=== PATIENT | male | born 1940 | race Caucasian/White ===

== ENCOUNTER → 2023-06-30 06:31 | Outpatient (REF) | payer MEDICARE, BC, SELFPAY | LOC: RSP 06:31 | PROVIDERS: ATTENDING PHYSICIAN Nurse Practitioner; FAMILY PHYSICIAN Family Medicine | DX: R06.09 Other forms of dyspnea (principal) | CPT/HCPCS: 94727; 94729; 88738; 94010 ==

== ENCOUNTER → 2023-08-26 09:37 | Outpatient (REF) | payer MEDICARE, BC, SELFPAY ==
[2023-08-26 11:00] LABS: Blood Urea Nitrogen 20 mg/dl (9-20)
== END ==
LOC: REG 09:37
PROVIDERS: ATTENDING PHYSICIAN Surgery; FAMILY PHYSICIAN Family Medicine
DX: C43.61 Malignant melanoma of right upper limb, including shoulder (principal)
CPT/HCPCS: 36415; 82565; 84520

== ENCOUNTER → 2023-09-07 07:40 | Outpatient (REF) | payer MEDICARE, BC, SELFPAY | LOC: HWRAD 07:40 | PROVIDERS: ATTENDING PHYSICIAN Surgery; FAMILY PHYSICIAN Family Medicine | DX: C43.61 Malignant melanoma of right upper limb, including shoulder (principal) | CPT/HCPCS: 71260; 74177; Q9967 ==

== ENCOUNTER → 2023-10-10 10:53 | Outpatient (REF) | payer MEDICARE, BC, SELFPAY ==
[2023-10-10 11:34] LABS: % Basophils 0.7 % (0-2); % Immature Granulocytes 0.3 % (0-0.5); % Lymphocytes 58.4 % (20.5-51.1); % Monocytes 4.8 % (1.7-9.3); % Neutrophils 33.8 % (42.2-75.2); Absolute Basophils 0.1 10^3/uL (0-0.2); Absolute Eosinophils 0.2 10^3/uL (0-0.7); Absolute Lymphocytes 6.2 10^3/uL (1.2-3.4); Absolute Monocytes 0.5 10^3/uL (0.1-0.6); Absolute Neutrophils 3.6 10^3/uL (1.4-6.5); Hematocrit 39.7 % (39.0-52.0); Hemoglobin 13.3 g/dL (13.0-18.0); Mean Corp Hgb Conc. 33.5 g/dL (33.0-37.0); Mean Corpuscular Hgb 30.4 pg (27.0-31.0); Mean Corpuscular Volume 90.8 fL (80.0-94.0); Mean Platelet Volume 9.1 fL (7.4-10.4); Nucleated Red Blood Cells % 0 % (-); Platelet Count 194 10^3/uL (130-400); Red Blood Cell Count 4.37 10^6/uL (4.70-6.10); White Blood Cell Count 10.7 10^3/uL (4.8-10.8)
[2023-10-10 13:14] LABS: IgG 784 mg/dl (700-1600)
[2023-10-10 13:17] LABS: LDH 256 U/L (120-246)
== END ==
LOC: REG 10:53
PROVIDERS: ATTENDING PHYSICIAN Internal Medicine Hematology & Oncology; FAMILY PHYSICIAN Family Medicine
DX: D72.820 Lymphocytosis (symptomatic) (principal); C91.10 Chronic lymphocytic leukemia of B-cell type not having achieved remission
CPT/HCPCS: 36415; 82784; 83615; 85025

== ENCOUNTER 2023-11-26 02:31 | Inpatient (IN) | payer MEDICARE, BC, SELFPAY ==
[2023-11-25 18:49] VITALS: BP 129/67
[2023-11-25 19:19] LABS: % Basophils 0.4 % (0-2); % Eosinophils 0.5 % (0-6); % Immature Granulocytes 0.6 % (0-0.5); % Lymphocytes 35.9 % (20.5-51.1); % Monocytes 9.1 % (1.7-9.3); % Neutrophils 53.5 % (42.2-75.2); Absolute Basophils 0.1 10^3/uL (0-0.2); Absolute Eosinophils 0.1 10^3/uL (0-0.7); Absolute Immature Granulocytes 0.1 10^3/uL (0-0.05); Absolute Lymphocytes 5.3 10^3/uL (1.2-3.4); Absolute Monocytes 1.3 10^3/uL (0.1-0.6); Absolute Neutrophils 7.9 10^3/uL (1.4-6.5); Hematocrit 34.1 % (39.0-52.0); Hemoglobin 11.3 g/dL (13.0-18.0); Mean Corp Hgb Conc. 33.1 g/dL (33.0-37.0); Mean Corpuscular Hgb 29.4 pg (27.0-31.0); Mean Corpuscular Volume 88.8 fL (80.0-94.0); Mean Platelet Volume 8.7 fL (7.4-10.4); Nucleated Red Blood Cells % 0 % (-); Platelet Count 283 10^3/uL (130-400); Red Blood Cell Count 3.84 10^6/uL (4.70-6.10); Red Cell Dist. Width 12.6 % (11.5-14.5); White Blood Cell Count 14.8 10^3/uL (4.8-10.8)
[2023-11-25 19:33] LABS: INR 1.28; PT 15.8 Sec (11.4-14.6)
[2023-11-25 19:37] LABS: ALT (SGPT) 84 U/L (0-50); AST (SGOT) 107 U/L (17-59); Albumin 3.9 g/dl (3.5-5.0); Alkaline Phosphatase 304 U/L (38-126); Blood Urea Nitrogen 37 mg/dl (9-20); Calcium 9.4 mg/dl (8.4-10.2); Carbon Dioxide 27 mmol/L (22-30); Chloride 98 mmol/L (98-107); Glucose 170 mg/dl (70-99); Potassium 5.5 mmol/L (3.5-5.1); Sodium 135 mmol/L (135-145); Total Protein 6.4 g/dl (6.3-8.2); eGFR 50.18
[2023-11-25 19:39] LABS: Troponin I < 0.012 ng/ml
[2023-11-25 20:41] VITALS: BP 127/58
[2023-11-25 21:00] VITALS: BP 110/58
[2023-11-25 22:00] VITALS: BP 124/55
[2023-11-25 22:38] LABS: Urine Albumin Trace (Neg - Trace); Urine Bilirubin 1+ (Negative); Urine Character Clear (Clear); Urine Color Yellow; Urine Glucose Negative (Negative); Urine Ketone Negative (Negative); Urine Leukocyte Negative (Negative); Urine Nitrite Negative (Negative); Urine Occult Blood Trace (Negative); Urine Urobilinogen 1+ (Neg - 1+)
[2023-11-25 22:39] LABS: Magnesium 2.1 mg/dl (1.6-2.3)
--- NOTE | 2023-11-25 22:44 | ED.GENMED ---
History of Present Illness
General
Chief Complaint: Chest Pain
Source: patient and family
Exam Limitations: none
Time Seen by Provider: 11/25/23 20:17
Nursing documentation reviewed up to this point in time: agreed with
History of Present Illness
History of Present Illness:
Patient presents to ED secondary to persistently, intermittent exertional shortness of breath and chest discomfort with fatigue over the past 2 weeks. Today, patient had multiple episodes, where he was found to be diaphoretic, clammy, and pale
appearing. These are symptoms similar to what he had experienced in the past, when he received multiple cardiac stents. Of note, patient states that his symptoms all started after he painted a shed outside. Since then, patient has felt fatigued
and sleepy, along with decreased appetite. Denies nausea or vomiting. Denies fever or chills. Denies back pain. Denies leg pain or swelling.
Past History
Past History
ED Past Medical History: Arrthythmia (Atrial fibrillation ), GERD, HTN, Hypercholesterolemia, Other (Arthritis ) and Other (Kidney stones )
ED Past Surgical History: Orthopedic (Knee replacement surgery rotator cuff surgery ) and Tonsilectomy
Social History
Tobacco: Non-smoker
Drug: None
Personal:
Living: with family
Employment: Retired
Family History
Family History: Negative Diabetes
Review of Systems
Review of Systems
Allergies reviewed?: Yes
All Other Systems: ROS reviewed and negative except as documented in HPI and ROS
Constitutional: Reports no symptoms
EENT: Reports no symptoms
Respiratory: Reports trouble breathing
Cardiac: Reports chest pain
ABD/GI: Reports no symptoms
: Reports no symptoms
Musculoskeletal: Reports no symptoms
Skin: Reports no symptoms
Neurological: Reports no symptoms
Phy Exam
Physical Exam
Physical Exam:
Physical Exam
General: no apparent distress, not acutely ill. afebrile
Head: nc/at. eomi
Neck: supple. no meningeal signs.
Heart: s1/s2 regular rate and rhythm, systolic ejection murmur. equal radial pulses.
Lungs: no acute respiratory distress. clear bilaterally
Abdomen: normal bowel sounds. not tender.
Neuro: alert and oriented. no focal neurological deficits
Skin: no rash
Psychiatric: well kept. interactive and cooperative
Extremities: no edema. no calf tenderness.
Scores
Heart Score for Chest Pain Patients
STEMI patient?: No
History: Moderately Suspicious
ECG: Normal
Age: >/= 65 years
Risk Factors: >/= 3 Risk Factors or History of CAD
Troponin: </= Normal Limit
Heart Score for Chest Pain Patients: 5
Heart Score Risk: 20.3% MACE over next 6 weeks
Course
Orders/Labs/Results
Orders:
Orders
11/25/23 18:54
Electrocardiogram (*1) Urgent
Reason for Study: Chest Pain
EKG- Treatment ONCE
11/25/23 19:08
Prothrombin Time Urgent
11/25/23 19:09
Complete Blood Count/With Diff Urgent
Comprehensive Metabolic Panel Urgent
Creatine Phosphokinase Urgent
Comment: ADD ON
Magnesium Urgent
Comment: ADD ON
NT-proBNP Urgent
Comment: ADD ON
Troponin I Urgent
11/25/23 22:05
Add On- LAB Urgent
Tests Added?: magnesium, Pro-BNP
11/25/23 22:06
CR Chest - 2 Views Urgent
Comment:
Reason For Exam: sob
11/25/23 22:31
COVID-19 Antigen Urgent
Source: Nasal Swab
Urinalysis Reflex To Culture Urgent
Date Specimen was Collected: 11/25/23
Time Specimen was Collected: 22:10
Urine Microscopic Reflex Cult Urgent
Urine Culture Urgent
TAMMY Source: U
Specimen Description:
Date Specimen was Collected: 11/25/23
Time Specimen was Collected: 22:10
11/25/23 22:33
0.9% Sodium Chloride 500 ml [Nss] 500 ml IV BOLUS
11/25/23 22:45
Add On- LAB Urgent
Tests Added?: pro-bnp
11/26/23 01:02
Troponin I Urgent
11/26/23 01:15
Admit/Transfer Patient As Directed
Co-Sign Provider:
Level of Care: Inpatient admission
Assign to:: Telemetry
Physician / Group: Milind
Diagnosis: KEYUR
Reason for Telemetry: Chest Pain syndromes
Date to Stop Telemetry: 11/28/23
Time to Stop Telemetry: 11:00
Reason for Hospitalization: KEYUR, Chest Pain
Expected length of stay greater than two midnights?: Yes
ELOS- Estimated Length of Stay in days: 2
I certify the patient meets the requirements for IP care: Yes
11/26/23 01:16
Code Status As Directed
Resuscitation Status: Full Code
11/26/23 01:23
Add On- LAB Urgent
Tests Added?: CPK
11/26/23 03:30
0.9% Sodium Chloride 1000 ml [Nss] 1,000 ml IV 100 mls/hr
Acetaminophen [Tylenol] 650 mg PO Q4HPRN PRN
11/26/23 03:30
Echo 2D MMode Doppler [Echo 2D MMode Color/Doppler] Routine
Reason for Study: Chest pain, SOB
CARDIOLOGY CONSULT Routine
Consulting Provider: Sorin Mckinley
Was physician already notified: No
Reason for consult: Chest Pain / CAD
Consult Notification Routine
Specialty to Notify: Cardiology
Date consulting provider notified: 11/26/23
Time consulting provider notified: 07:54
Notified:: Provider
Comment: VIA TIGER TEXT DR. CHIP CROSS
Activity As Directed
Activity Level: Ambulate
With Assistance
Bladder Scan As Directed
Follow Bladder Retention/Intermittent Cath Algorithm?: Yes
PRN if no void in __ hours: 6
Frequency: Per Retention Algorithm
If Bladder Scan Result >: 400
then:: Straight cath
EKG with chest pain [ECG as needed] As Directed
ECG as needed for:: Chest Pain
I/O [Intake/ Output] As Directed
Frequency: Per unit guidelines
Orthostatic Vital Signs As Directed
Orthostatic VS Frequency: BID
Pneumatic Compression Sleeves As Directed
Type: Knee high
Straight Cath As Directed
Frequency: Per Retention Algorithm
Additional Instructions: straight cath as needed per acute urinary retention algorithm for 24 hrs
Additional Instructions: for bladder scan greater than 400 mL
Vital Signs As Directed
Frequency: Per unit guidelines
Weight As Directed
Frequency: Daily
Oxygen Therapy [O2 Therapy] [RESP] Routine
Titrate/Wean O2 to maintain O2 sat greater than (%): 94
Ot Eval And Treat Routine
PT Consult [Pt Eval And Treat] Routine
Activity Level: Ambulate
With Assistance
DX Deep Vein Thrombosis Video Routine
11/26/23 06:00
EKG [Electrocardiogram (*1)] IN AM
Reason for Study: Chest Pain
Regular
At Your Request: Full Participation
Levothyroxine [Synthroid] 100 mcg PO DAILY@0600
US Abdomen Complete/Upper IN AM
Comment:
Reason For Exam: Abnormal LFTs
11/26/23 07:46
Complete Blood Count/No Diff IN AM
TSH Reflex To Free T4 Routine
Troponin I IN AM
11/26/23 08:00
Allopurinol [Zyloprim] 100 mg PO DAILY
Atenolol [Tenormin] 50 mg PO DAILY
Clopidogrel Bisulfate [Plavix] 75 mg PO DAILY
ISOSORBIDE MONOnitrate ER [Imdur (Extended Release)] 30 mg PO DAILY
Pantoprazole [Protonix] 40 mg PO DAILY
11/26/23 18:00
Aspirin Low Dose EC [Aspir Low (Enteric Coated)] 81 mg PO QPM
Enoxaparin Sodium [Lovenox] 40 mg SC QPM
Ezetimibe [Zetia] 10 mg PO QPM
Rosuvastatin Calcium [Crestor] 5 mg PO QPM
coQ10 (ubiquinol) 200 mg PO QPM
11/28/23 11:00
DC Protocol for Telemetry ONCE
Abnormal Lab Results
11/25/23 11/25/23 11/25/23
19:08 19:09 22:31
WBC 14.8 H 10^3/uL
(4.8-10.8)
RBC 3.84 L 10^6/uL
(4.70-6.10)
Hgb 11.3 L g/dL
(13.0-18.0)
Hct 34.1 L %
(39.0-52.0)
Abs Immat Gran (auto) 0.1 H 10^3/uL
(0-0.05)
Absolute Neuts (auto) 7.9 H 10^3/uL
(1.4-6.5)
Absolute Lymphs (auto) 5.3 H 10^3/uL
(1.2-3.4)
Absolute Monos (auto) 1.3 H 10^3/uL
(0.1-0.6)
Immature Gran % 0.6 H %
(0-0.5)
PT 15.8 H Sec
(11.4-14.6)
Potassium 5.5 H mmol/L
(3.5-5.1)
BUN 37 H mg/dl
(9-20)
Creatinine 1.4 H mg/dL
(0.7-1.3)
Glucose 170 H mg/dl
(70-99)
AST 107 H U/L
(17-59)
ALT 84 H U/L
(0-50)
Alkaline Phosphatase 304 H U/L
(38-126)
Ur Occult Blood Reflex Trace A
(Negative)
Urine Bilirubin 1+ A
(Negative)
Urine Bacteria (Reflex) Many A
(Negative)
11/25/23 19:09
11/25/23 19:09
Vital Signs
Initial and Last Documented VS:
Initial Vital Signs
Temp Pulse Resp BP Pulse Ox
98.2 F 78 18 129/67 96
11/25/23 18:49 11/25/23 18:49 11/25/23 18:49 11/25/23 18:49 11/25/23 18:49
Last Documented Vital Signs
Temp Pulse Resp BP Pulse Ox
99 F 63 16 112/60 94
11/26/23 15:00 11/26/23 15:00 11/26/23 15:00 11/26/23 15:00 11/26/23 15:00
MDM/Problems Addressed
MDM/Problems Addressed:
History and exam consistent with likely mild degree of dehydration, from overexertion when he was painting couple weeks ago. However, patient does have significant CAD with intermittent symptoms, especially today, concerning for potential recurrent
obstructive disease. As such, patient will be admitted for further eval and treatment, including IV hydration and potential cardiology evaluation.
*Critical Care Note
Total Time (30-74mins, 75-104mins- exclusive of procedures): Not Applicable
ED Attending Note
-
Portions of this chart may have been created with voice recognition software.� Occasional wrong word or��sound alike� substitutions may have occurred due to the inherent limitations of voice recognition software.
Discharge Plan
Departure
Patient Disposition: Admit
Date of Disposition: 11/25/23
Time of Disposition: 22:50
Admit to: Telemetry
Presentation/result/management discussed w/ accepting MD/DO: Hospitalist
Discharge Problem:
Acute renal failure (ARF), Chest pain
Interventions
Interventions:
*Risk Screen - Suicide Last Done: 11/26/23 02:57
*General Assessment Last Done: 11/25/23 18:49
*Neglect/Abuse Screening Last Done: 11/25/23 18:49
ED- Fall Risk Assessment Last Done: 11/26/23 02:45
*ED COVID-19 Vaccine History Last Done: 11/26/23 02:57
*Nursing Disposition Last Done: 11/26/23 02:45
ED- Cardiac Assessment Last Done: 11/25/23 20:47
Discharge Date and Time
Discharge Date/Time: 11/26/23 02:46
[2023-11-25 22:47] LABS: Urine Red Blood Cell 0-2 /HPF (0-2); Urine White Cell 0-2 /HPF (0-5)
[2023-11-25 22:48] LABS: Urine Bacteria Many (Negative)
[2023-11-25 22:53] LABS: COVID-19 Antigen Negative (Negative)
[2023-11-25] MEDS: NSS 500 IV (22:58)
[2023-11-25 23:27] LABS: NT-proBNP 380 pg/ml
[2023-11-26] VITALS (7 sets, daily range): BP systolic 112–144; BP diastolic 55–73; PULSE 75–95; O2SAT 95; BMI 30.5
--- NOTE | 2023-11-26 01:19 | HPS.HSE ---
Family Physician
-
Family Physician: Nita Song
Chief Complaint
-
Fatigue, chest pain, diaphoresis
History of Present Illness
Patient is an 83y M with PMH significant for ASCVD, aortic stenosis and hypertension who presents to ED complaining of 2 weeks of SOB, generalized weakness / fatigue and intermittent chest pain and diaphoresis. History obtained from patient and
his family at the bedside. Patient states that about 3 weeks ago he 'overdid it' by painting his large outdoor shed (with a 2.5in brush). Since that time, he has felt more short of breath with activity, generally weak and fatigued. He has
episodes of lightheadedness and 'cold sweats'. He has had brief episodes of chest discomfort. He had outpatient labs done for a routine upcoming visit with his PCP - and he was called and advised to present to the ED given his ongoing symptoms and
his lab abnormalities.
Patient denies any chest pain at this time.
He denies any significant changes in his weight, LE swelling, etc.
He does report decreased frequency of urination and very dark and malodorous urine.
Medical History
Past Medical History
Past Medical History: Reports Other
Additional Past Medical History:
ASCVD
A-Fib (s/p Ablation)
Aortic Stenosis
CLL
Hypertension
Hypothyroidism
Gout
GERD
Past Surgical History: Reports Other
Additional Past Surgical History:
PTCA with Stent (x 3)
TAVR
PVI Ablation (x 2)
Bilateral TKA
Bilateral Rotator Cuff Repairs
R Ankle Arthroplasty
RUE Melanoma Excision and R Axillary Lymph Node Dissection
Social History
Tobacco: Former Smoker (Quit smoking in 1970s)
Alcohol: Occasional
Drug: None
Personal:
Living: With Family
Family History
Family History: Not pertinent
Allergies / Home Medications
Allergies reflects when Allergies were last updated in [employer].
Home Medications with original date entered in [employer]
Allergy/Medication List:
Allergies
Allergy/AdvReac Type Severity Reaction Status Date / Time
No Known Allergies Allergy Verified 05/02/23 08:03
Home Medications
levothyroxine 100 mcg tablet (Synthroid) 100 mcg PO DAILY 11/23/09
atenolol 50 mg tablet 50 mg PO DAILY 07/14/12
allopurinol 100 mg tablet 100 mg PO DAILY 04/30/21
losartan 50 mg tablet 50 mg PO DAILY 04/30/21
clopidogrel 75 mg tablet 75 mg PO DAILY #90 tabs 12/07/21
isosorbide mononitrate 30 mg tablet,extended release 24 hr 30 mg PO DAILY 05/02/23
rosuvastatin 5 mg tablet 5 mg PO QPM 05/02/23
Metamucil 1 tbsp PO HS 11/25/23
acetaminophen 650 mg tablet,extended release 650 mg PO DAILY 11/25/23
aspirin 81 mg tablet,delayed release 81 mg PO QPM 11/25/23
coQ10 (ubiquinol) 200 mg capsule 200 mg PO QPM 11/25/23
ezetimibe 10 mg tablet (Zetia) 10 mg PO QPM 11/25/23
lansoprazole 30 mg capsule,delayed release 30 mg PO DAILY 11/25/23
light mineral oil-mineral oil (PF) 0.5 %-0.5 % eye drops,dropperette (Retaine MGD (PF)) 1 drp ophthalmic (eye) TIDPRN PRN dry eyes 11/25/23
polyethylene glycol 1 %-polyvinyl alcohol 1 % eye drops 1 drp ophthalmic (eye) TIDPRN PRN dry eyes 11/25/23
Review of Systems
-
History Source: Patient
A 12 point ROS was completed and negative except as noted: Yes
Constitutional: Reports Fatigue and Chills; Denies Fever, Weight Gain or Weight Loss
EENT: Denies Sore Throat
Respiratory: Reports Trouble Breathing; Denies Cough
Cardiac: Reports Chest Pain and Diaphoresis; Denies Palpitations or Syncope
Abdomen/GI: Denies Abdominal Pain, Nausea, Vomiting or Diarrhea
: Reports Dark Urine and Other (Decreased urination.); Denies Dysuria, Frequency or Flank Pain
Musculoskeletal: Reports Muscle Pain (legs); Denies Joint Pain or Edema
Neurological: Denies Dizzy or Headache
Psych: Denies Depression or Anxiety
Physical Exam
Vital Signs
Vital Signs
Temp Pulse Resp BP Pulse Ox
98.2 F 69 18 124/55 94
11/25/23 18:49 11/26/23 00:45 11/26/23 00:45 11/25/23 22:00 11/26/23 00:45
Physical Exam
General: Other (83y M in no acute distress.)
HEENT: Moist mucous membranes, PERRLA and Other (No JVD)
Respiratory: Other (Bibasilar rales about 1/4 up.)
Cardiac: S1/S2 and Regular Rhythm; No Murmur
GI: Soft, Non Tender, Non Distended and Normal Bowel Sounds
Musculoskeletal: No Clubbing, No Cyanosis and No Edema
Neuro: AO x 3
Laboratory Results
-
11/25/23 19:09
11/25/23 19:09
Laboratory Results
PT 15.8 Sec (11.4-14.6) H 11/25/23 19:08
INR 1.28 11/25/23 19:08
Total Bilirubin 1.0 mg/dl (0.2-1.3) 11/25/23 19:09
AST 107 U/L (17-59) H 11/25/23 19:09
ALT 84 U/L (0-50) H 11/25/23 19:09
Alkaline Phosphatase 304 U/L (38-126) H 11/25/23 19:09
Troponin I < 0.012 ng/ml 11/25/23 19:09
Impression/Plan
-
A/P: Patient is an 83y M with PMH significant for ASCVD, aortic stenosis and hypertension who presents to ED for evaluation of chest pain, dyspnea, fatigue and diaphoresis x 2 weeks.
KEYUR
- SCr = 1.4 compared to known baseline of 1.1.
- Likely due to degree of hypovolemia based on exam / labs.
- IVFs overnight and follow for improvement.
- Hold losartan acutely.
ASCVD
Chest Pain
Aortic Stenosis s/p TAVR
- Patient notes that current constellation of symptoms is similar to those he had with prior WI / stents.
- EKG without acute ischemia and is unchanged from prior.
- Initial troponin is undetectable - follow x 3 sets total or until peak.
- Continue usual outpatient CV med regimen including DAPT.
- Cardiology evaluation for additional recommendations.
- Update Echo.
Abnormal LFTs
- Patient with abnormal LFTs including significant increase in Alk phos (but normal bili).
- ? etiology of this change.
- Follow labs for changes.
- Check abd US in the AM.
- Add CPK to labs - especially with patient complaints of statin-induced leg discomfort.
CLL
- Stable. Current elevation in WBC may be due to known CLL.
- No other evidence of acute infectious process.
- Observe off of abx.
- Follow fever curve, symptoms, etc.
Hypothyroidism
- Stable. Continue current T4 supplementation.
- Update TFTs.
Paroxysmal A-Fib
- Stable. Maintaining NSR s/p PVI ablation(s).
- Not maintained on chronic OAC.
- Follow on tele.
DVT Prophylaxis: Lovenox
Code Status: Full
[2023-11-26 01:42] LABS: Troponin I < 0.012 ng/ml
[2023-11-26 02:20] LABS: Creatine Phosphokinase 75 U/L (55-170)
[2023-11-26] MEDS: NSS 1000 IV (04:04)
--- NOTE | 2023-11-26 05:57 | PTCARENOTE ---
Pt admitted to unit from ED. Pt ambulated self to bed. AAXO3. VS: Temp 98.9, Pulse 75, BP 132/60, Resp Rate 20, and O2 98% on RA. Pt denies chest pain. Pt oriented to the room with call sanford in reach. Pt NPO since admitted to the unit. Plan of care
ongoing.
[2023-11-26 08:36] LABS: Hematocrit 32.6 % (39.0-52.0); Mean Corp Hgb Conc. 33.7 g/dL (33.0-37.0); Mean Corpuscular Hgb 29.5 pg (27.0-31.0); Mean Corpuscular Volume 87.4 fL (80.0-94.0); Mean Platelet Volume 8.9 fL (7.4-10.4); Platelet Count 280 10^3/uL (130-400); Red Blood Cell Count 3.73 10^6/uL (4.70-6.10); Red Cell Dist. Width 12.7 % (11.5-14.5)
[2023-11-26 08:58] LABS: Troponin I < 0.012 ng/ml
[2023-11-26 09:03] LABS: ALT (SGPT) 68 U/L (0-50); AST (SGOT) 78 U/L (17-59); Albumin 3.7 g/dl (3.5-5.0); Alkaline Phosphatase 306 U/L (38-126); Blood Urea Nitrogen 29 mg/dl (9-20); Calcium 9.2 mg/dl (8.4-10.2); Carbon Dioxide 24 mmol/L (22-30); Chloride 102 mmol/L (98-107); Direct Bilirubin 0.4 mg/dl (0.0-0.4); Estimated Creatinine Clearance 52 ml/min; Glucose 145 mg/dl (70-99); Potassium 5.2 mmol/L (3.5-5.1); Sodium 135 mmol/L (135-145); Total Bilirubin 0.9 mg/dl (0.2-1.3); Total Protein 6.1 g/dl (6.3-8.2); eGFR > 60.00
--- NOTE | 2023-11-26 09:05 | PTOTSP ---
Patient demonstrates independent mobility, no skilled physical therapy needs at this time.
--- NOTE | 2023-11-26 09:09 | CON.CAR ---
Consultation
Consultation Request
Date/Time Consultation Requested: 11/26/23
Date/Time Consultation Performed: 11/26/23
Requesting Provider: Milind
Performing Provider: Elías
Reason for Consultation: chest pain
Medical History
-
Chief Complaint: weakness, fatigue, diaphoresis and chest discomfort
History of Present Illness:
83M PMHx s/p TAVR, CAD s/p PCI and Afib who presents for evaluation of weakness, fatigue, diaphoresis and chest discomfort found to have KEYUR and hyperkalemia
In regards to his chest discomfort, patient tells me that this is left-sided chest discomfort, seems to be in the lower portion of his chest with some radiation around towards the back. This only lasts very briefly perhaps seconds and he describes
it as twinges. Has been present for approximately 3 weeks at this point occurring intermittently. No clear exacerbating or alleviating factors, does not seem to be clearly exertional from what I can tell him.
Serial troponins have been undetectable here. ECGs are not overtly ischemic appearing.
Tells me he has been working painting his shed, both priming and painting over the last several weeks, suspect that his chest pain may be musculoskeletal in etiology based on this.
As far as his KEYUR, he is receiving IV fluids and creatinine has improved from 1.4-1.2 which is closer to his baseline. Potassium is also improving from 5.5-5.2.
Patient reports diaphoresis to me and last recorded temperature is 100.8 �F. Also with leukocytosis here. Suspect there may be some underlying infectious etiology.
PMHx/ PSHx:
-�Severe -�s/p R TF TAVR (26 mm Valente S3) on 01/07/22
- CAD - s/p NORAH to prox-mid RCA 12/07/21
- HTN
- HLD
- DM II - diet controlled (HgA1C 6.6)
- CKD 3
- Paroxysmal a-fib - s/p PVI x2 (2010 and 2012)
Sinus rhythm since, not on anticoagulation- Former smoker
- Obesity, class 1 (BMI 31)
- Hypothyroidism
- GERD, hx PUD, dysphagia
- Gout
- OA
- Depression
- Neuropathy
- Nephrolithiasis
- CLL (asymptomatic)
- b/l TKR with L knee revision
- R ankle surgery
- R rotator cuff sx
- b/l cataract sx
Past Medical History
Past Medical History: Other (as above)
Past Surgical History: Other (as above)
Social History
Tobacco: Former Smoker
Alcohol: Occasional
Drug: None
Personal:
Living: With Family
Family History
Family History: Reviewed & Not Pertinent
Allergies / Home Medications
Allergy/AdvReac Type Severity Reaction Status Date / Time
No Known Allergies Allergy Verified 05/02/23 08:03
�Medication �Instructions �Recorded �Confirmed �Type
levothyroxine 100 mcg tablet 100 mcg PO DAILY 11/23/09 11/25/23 History
(Synthroid)
atenolol 50 mg tablet 50 mg PO DAILY 07/14/12 11/25/23 History
allopurinol 100 mg tablet 100 mg PO DAILY 04/30/21 11/25/23 History
losartan 50 mg tablet 50 mg PO DAILY 04/30/21 11/25/23 History
clopidogrel 75 mg tablet 75 mg PO DAILY #90 tabs 12/07/21 11/25/23 Rx
isosorbide mononitrate 30 mg 30 mg PO DAILY 05/02/23 11/25/23 History
tablet,extended release 24 hr
rosuvastatin 5 mg tablet 5 mg PO QPM 05/02/23 11/25/23 History
Metamucil 1 tbsp PO HS 11/25/23 11/25/23 History
acetaminophen 650 mg 650 mg PO DAILY 11/25/23 11/25/23 History
tablet,extended release
aspirin 81 mg tablet,delayed 81 mg PO QPM 11/25/23 11/25/23 History
release
coQ10 (ubiquinol) 200 mg capsule 200 mg PO QPM 11/25/23 11/25/23 History
ezetimibe 10 mg tablet (Zetia) 10 mg PO QPM 11/25/23 11/25/23 History
lansoprazole 30 mg capsule,delayed 30 mg PO DAILY 11/25/23 11/25/23 History
release
light mineral oil-mineral oil (PF) 1 drp ophthalmic (eye) TIDPRN PRN 11/25/23 11/25/23 History
0.5 %-0.5 % eye drops,dropperette dry eyes
(Retaine MGD (PF))
polyethylene glycol 1 %-polyvinyl 1 drp ophthalmic (eye) TIDPRN PRN 11/25/23 11/25/23 History
alcohol 1 % eye drops dry eyes
Review of Systems
-
History Source: Patient
All other systems: Negative unless noted
Physical Exam
Vital Signs
Temp Pulse Resp BP Pulse Ox
100.8 F H 84 18 126/68 96
11/26/23 07:00 11/26/23 07:00 11/26/23 07:00 11/26/23 07:00 11/26/23 07:00
Lab Results
11/26/23 07:46
11/26/23 07:46
Troponin I < 0.012 ng/ml 11/26/23 07:46
Iks-Q-Zaciubllgip Pept 380 pg/ml 11/25/23 19:09
Physical Exam
General: Well Developed
HEENT: Normocephalic
Respiratory: Clear
Cardiac: S1/S2 and Regular Rhythm
GI: Soft
Musculoskeletal: No Edema
Skin: Warm and Dry
Neuro: Awake and Alert
Psych: Calm
Impression / Plan
-
PCP:Nita Song
Shellfish Weigher: Dr. Willis
Impression:
Presenting with weakness, fatigue, diaphoresis
Atypical chest pain
Found to have KEYUR and hyperK
SIRS - leukocytosis and low grade fever
Elevated LFTs
-�Severe -�s/p R TF TAVR (26 mm Valente S3) on 01/07/22, pod #1
- CAD - s/p NORAH to prox-mid RCA 12/07/21
- HTN
- HLD
- DM II - diet controlled (HgA1C 6.6)
- CKD 3
- Paroxysmal a-fib - s/p PVI x2 (2010 and 2012)
Sinus rhythm since, not on anticoagulation- Former smoker
- Obesity, class 1 (BMI 31)
- Hypothyroidism
- GERD, hx PUD, dysphagia
- Gout
- OA
- Depression
- Neuropathy
- Nephrolithiasis
- CLL (asymptomatic)
- b/l TKR with L knee revision
- R ankle surgery
- R rotator cuff sx
- b/l cataract sx
Cardiac cath 12/07/21: Successful stenting of the proximal and mid right coronary artery.� The proximal RCA was stented with a 3.0 x 15 mm Xience stent while the mid RCA was stented with a 2.5 x 23 mm Xience stent.� The stented segments were
postdilated with a 3.0 mm noncompliant balloon
Cardiac catheterization 01/05/2022: 80% proximal RCA, 50% mid and tandem 50 to 60% mid to distal stenosis. Otherwise no significant CAD
Plan:
-Patient presenting with weakness and fatigue found to have KEYUR and LFT abnormalities as well as low-grade fever and leukocytosis, possible SIRS/sepsis - will defer further workup to hospitalizst
-Cardiology is consulted for atypical chest pain, patient describes left-sided chest discomfort has been present for several weeks at this point he describes as a tinge, occurring very briefly
-Serial troponins have been undetectable
-Twelve-lead ECG is nonischemic appearing
-Suspect chest pain is noncardiac, discussed possibility of outpatient stress test with his
-Continue medical managment of CAD: aspirin/Plavix, statin/Zetia, BB/Imdur
-In regards to KEYUR and hyperkalemia, agree with holding losartan
Data Reviewed
-
EKG: Tracing Personally Visualized and interpreted
Medical Tests (Nuc Med, Echo etc): Report Reviewed by me
Labs: Labs Reviewed by me
Old Records: Reviewed
[2023-11-26] MEDS: ZYLOPRIM 100 MG PO (09:59)
[2023-11-26] MEDS: TENORMIN 50 MG PO (09:59)
[2023-11-26] MEDS: PROTONIX 40 MG PO (09:59)
[2023-11-26] MEDS: PLAVIX 75 MG PO (09:59)
[2023-11-26] MEDS: IMDUR (EXTENDED RELEASE) 30 MG PO (10:00)
[2023-11-26 10:02] LABS: TSH Reflex To Free T4 2.03 uIU/ml (0.47-4.68)
[2023-11-26] MEDS: NSS IV (15:20)
--- NOTE | 2023-11-26 15:48 | W.PN.UPDATE ---
Addendum entered and electronically signed by Spenser Arzola MD 11/26/23 18:04:
D-dimer resulted at more than 20.
Spoke to Antonella his daughter on phone just now and went over the D-dimer lab test. Such a high elevation is seen more likely in a sinister issue especially malignancy. With his nonspecific chest pain and nonspecific fever would like to rule out
any thromboembolic disease including PE/DVT. Advised her to bring dad to ER to at least get the chest CT to check it out even if is not keen to come back to the hospital for further inpatient evaluation.
Addendum entered and electronically signed by Spenser Arzola MD 11/26/23 16:13:
A DDimer was requested to evaluate for his left upper chest pain . [place] important as he has CP and SOB. It was added to labs but pt was not patient enough to wait for test results and signed AMA and left !!
Original Note:
Update Note
Progress Note Update
Admitted early hours this morning by Dr. Vaz for fatigue, chest pain and diaphoresis.
Mom called to see him as he is keen to go home even against the medical advice.
present at bedside. Daughter Antonella who is RN here present at bedside.
Patient states 2 weeks ago he was doing a lot of painting of his garage and after that he started noticed multitude of symptoms.
Because he was found to have abnormal lab work and since he was complaining of some nonspecific chest pain his PCP referred to the hospital.
He complains of bilateral shoulder aches. He had some localized pain to the left upper chest wall area. Not pleuritic in nature. There is no focal tenderness. Negative troponins noted. EKG nondiagnostic for acute ischemia. Seen by cardiology
who feels this is a atypical chest pain. Chest x-ray does not show any acute pathology. Will get a D-dimer and if negative will suspect as chest pain is nonspecific.
His other symptoms are lately decreased appetite, unintentional weight loss. No nausea vomiting or change in bowel habits. Is noted to have abnormal LFTs as an outpatient which noted here as well. His abdomen is benign. Ultrasound of the abdomen
on this admission shows hepatomegaly,Innumerable small round echogenic foci throughout the liver, appearance highly suggestive of diffuse hepatic metastatic disease.. No evidence of gallstones. No evidence of gallbladder wall thickening. No
evidence of obstructing kidney stones.
Has history of CLL and sees Dr. Hutchinson. He also has a history of melanoma which was resected and had a follow-up CT of the abdomen /pelvis/chest 2 months ago which showed Stable findings without convincing evidence for metastatic disease in the
chest, abdomen or pelvis.
I went over in detail about the abnormal liver pathology concerning for cancer and with history of melanoma that needs to be biopsied. The patient//daughter knows that they are going to call Dr. Hutchinson and follow this as an outpatient.
.
Lastly he has 1 low-grade fever of 90.8. He denies any chills. He has been experiencing some sweats lately. His white count is elevated.
Abnormal LFTs and nonspecific chest pain; he has no positive symptoms of infection. He finds his urine order strong but his urinalysis is negative for any pyuria. Urine culture is pending. No prior history of prostate or bladder issues. His
abnormal liver function test but no biliary disease. He has no GI symptoms. COVID-19 negative. He is currently not keen to stay and get infectious workup but he is going to keep a diary of fever curve at home or if there is any new symptom he
would come back. Hemodynamically stable. Prior to discharge we did draw blood cultures which he needs to follow with PCP. Again the family at bedside understands my concern of fever and incomplete workup.
Daughter states that he does not do well in the hospital.
After blood cultures are drawn will discharge patient home on his previous medication.
--- NOTE | 2023-11-26 16:01 | PTCARENOTE ---
Patient signed out ama despite Hospitalist and RN encouraging patient to stay for d-dimer results. Pt also refused IVF and tele monitor for the last couple hours of the shift, pt also refused discharge vital signs. Patient's said they did not
need to wait for discharge paperwork and that she was confident in the paperwork and contact information Dr Arzola provided to patient and her earlier. Patient and patient's had no further questions on his plan of care and diagnosis.
[2023-11-26 16:27] LABS: D-Dimer > 20.00 ug/mlFEU (0.00-0.50)
--- NOTE | 2023-11-26 16:58 | PTCARENOTE ---
AMA form signed by patient, RN put it inside patients chart
== END 2023-11-26 16:30 | disposition left against medical advice (07) | DRG 683 ==
LOC: 4 WEST ACU 02:31
PROVIDERS: Emergency Medicine; ADMITTING PHYSICIAN Hospitalist; ATTENDING PHYSICIAN Internal Medicine; CONSULT PHYSICIAN Internal Medicine Cardiovascular Disease; EMERGENCY PHYSICIAN Emergency Medicine; FAMILY PHYSICIAN Family Medicine
DX: N17.9 Acute kidney failure, unspecified (principal); C91.10 Chronic lymphocytic leukemia of B-cell type not having achieved remission; R65.10 Systemic inflammatory response syndrome (SIRS) of non-infectious origin without acute organ dysfunction; I25.10 Atherosclerotic heart disease of native coronary artery without angina pectoris; R07.89 Other chest pain; E86.1 Hypovolemia; R79.89 Other specified abnormal findings of blood chemistry; E03.9 Hypothyroidism, unspecified; I48.0 Paroxysmal atrial fibrillation; E78.00 Pure hypercholesterolemia, unspecified; K21.9 Gastro-esophageal reflux disease without esophagitis; E87.5 Hyperkalemia; I12.9 Hypertensive chronic kidney disease with stage 1 through stage 4 chronic kidney disease, or unspecified chronic kidney disease; F32.A Depression, unspecified; M10.9 Gout, unspecified; E11.40 Type 2 diabetes mellitus with diabetic neuropathy, unspecified; E11.22 Type 2 diabetes mellitus with diabetic chronic kidney disease; R50.9 Fever, unspecified; N18.30 Chronic kidney disease, stage 3 unspecified; E66.9 Obesity, unspecified; Z53.29 Procedure and treatment not carried out because of patient's decision for other reasons; Z95.3 Presence of xenogenic heart valve; I25.2 Old myocardial infarction; Z95.5 Presence of coronary angioplasty implant and graft; Z68.31 Body mass index [BMI] 31.0-31.9, adult; Z87.891 Personal history of nicotine dependence; Z11.52 Encounter for screening for COVID-19
CPT/HCPCS: 71046; 71275; 76700; 80053; 81003; 81015; 82248; 82550; 83735; 83880; 84443; 84484; 85025; 85027; 85379; 85610; 87040; 87086; 87811; 93005; 97162; Q9967

== ENCOUNTER 2023-11-26 18:20 | Emergency (ER) | payer MEDICARE, BC, SELFPAY ==
[2023-11-26 18:25] VITALS: BP 134/60
[2023-11-26 19:08] VITALS: BP 129/64
[2023-11-26 19:13] VITALS: BMI 31.1
[2023-11-26 20:15] VITALS: BP 129/61
--- NOTE | 2023-11-26 20:33 | ED.GENMED ---
History of Present Illness
General
Chief Complaint: Abnormal Lab Value
Source: patient
Exam Limitations: none
Time Seen by Provider: 11/26/23 19:20
Nursing documentation reviewed up to this point in time: agreed with
History of Present Illness
History of Present Illness:
83-year-old male with past medical history of A-fib, heart disease, recently diagnosed masses to the liver, diabetes presenting to the emergency department today after his D-dimer was elevated he was contacted after he left from a hospital stay this
morning. He came back for CT scan to rule out a PE otherwise the plan was for follow-up with oncology for further assessment of liver masses.
Past History
Past History
ED Past Medical History: Arrthythmia (Atrial fibrillation ), GERD, HTN, Hypercholesterolemia, Other (Arthritis ) and Other (Kidney stones )
ED Past Surgical History: Orthopedic (Knee replacement surgery rotator cuff surgery ) and Tonsilectomy
Social History
Tobacco: Non-smoker
Drug: None
Personal:
Living: with family
Employment: Retired
Family History
Family History: Negative Diabetes
Review of Systems
Review of Systems
Allergies reviewed?: Yes
All Other Systems: ROS reviewed and negative except as documented in HPI and ROS
Phy Exam
Physical Exam
Physical Exam:
GENERAL: Alert , in no apparent distress
EYE: pupils equal and reactive
NECK: Supple, no significant adenopathy.
ENT: o/p clr, mmm.
CARDIAC: Regular rate and rhythm .
LUNGS: Clear breath sounds bilaterally, no acute respiratory distress, no wheezes/rales/rhonchi
ABDOMEN: Soft, without focal tenderness, no r/g, no cvat
NEUROLOGICAL: Alert and oriented, no focal neuro deficits
SKIN: Warm and dry, skin intact.
MUSCULOSKELETAL: No edema, well perfused.
PSYCH: Normal and appropriate interaction.
Course
Orders/Labs/Results
Orders:
Orders
11/26/23 18:31
Electrocardiogram (*1) Urgent
Reason for Study: Other
Other Reason for Exam: elevated d-dimer
EKG- Treatment ONCE
11/26/23 19:[address] [CT Chest Pe Study] Urgent
Comment:
Reason For Exam: elevated dimer
Vital Signs
Initial and Last Documented VS:
Initial Vital Signs
Temp Pulse Resp BP Pulse Ox
99.1 F 67 16 134/60 97
11/26/23 18:25 11/26/23 18:25 11/26/23 18:25 11/26/23 18:25 11/26/23 18:25
Last Documented Vital Signs
Temp Pulse Resp BP Pulse Ox
99.1 F 73 22 129/61 95
11/26/23 18:25 11/26/23 19:32 11/26/23 19:32 11/26/23 20:15 11/26/23 20:15
MDM/Problems Addressed
MDM/Problems Addressed:
84-year-old male presenting to the emergency department today with concerns of elevated D-dimer that was drawn this morning. CT scan was obtained to rule out PE there is no evidence of emergent pathology of the chest. Otherwise stable for
follow-up and original plan of discharge from this morning. Return precautions given.
*Critical Care Note
Total Time (30-74mins, 75-104mins- exclusive of procedures): Not Applicable
ED Attending Note
-
Portions of this chart may have been created with voice recognition software.� Occasional wrong word or��sound alike� substitutions may have occurred due to the inherent limitations of voice recognition software.
Discharge Plan
Departure
Patient Disposition: Home (Routine Discharge)
Date of Disposition: 11/26/23
Time of Disposition: 20:33
Patient with high blood pressure during this ER visit?: No
Condition: Good
Covid-19: Not Applicable
Discharge Problem:
D-dimer, elevated
Instructions: D-dimer test
Prescriptions:
No Action
levothyroxine [Synthroid] 100 MCG tablet
100 mcg PO DAILY
atenolol 50 MG tablet
50 mg PO DAILY
losartan 50 MG tablet
50 mg PO DAILY
allopurinol 100 MG tablet
100 mg PO DAILY
clopidogrel 75 mg tablet
75 mg PO DAILY Qty: 90 3RF
isosorbide mononitrate 30 mg Tablet Extended Release 24 Hr
30 mg PO DAILY
rosuvastatin 5 mg Tablet
5 mg PO QPM
aspirin 81 mg Tablet,Delayed Release (Dr/Ec)
81 mg PO QPM
acetaminophen 650 mg Tablet Extended Release
650 mg PO DAILY
polyethyl glycol-polyvinyl alc 1-1 % Drops
1 drp ophthalmic (eye) TIDPRN PRN (Reason: dry eyes)
Patient Comments:
11/25/2023, both eyes.
lansoprazole 30 mg capsule,delayed release(DR/EC)
30 mg PO DAILY
coQ10 (ubiquinol) 200 mg Capsule
200 mg PO QPM
Retaine MGD (PF) 0.5-0.5 % Dropperette
1 drp ophthalmic (eye) TIDPRN PRN (Reason: dry eyes)
Patient Comments:
11/25/2023, both eyes.
Metamucil
1 tbsp PO HS
ezetimibe [Zetia] 10 mg tablet
10 mg PO QPM
Referrals:
Nita Song MD [Family Provider] -
Activity Restrictions/Additional Instructions:
You came to the emergency department due to an elevated D-dimer test. The CT scan did not show any blood clot please follow-up as previously specified. Return to the emergency department for any worsening, new or concerning symptoms.
Interventions
Interventions:
*Risk Screen - Suicide Last Done: 11/26/23 19:13
*General Assessment Last Done: 11/26/23 19:13
*Neglect/Abuse Screening Last Done: 11/26/23 19:13
ED- Fall Risk Assessment Last Done: 11/26/23 19:13
*ED COVID-19 Vaccine History Last Done: 11/26/23 18:25
Discharge Date and Time
Print Language: CITIZEN [place]
== END 2023-11-26 20:43 | disposition home or self-care (01) ==
LOC: EMR 18:20
PROVIDERS: EMERGENCY PHYSICIAN Emergency Medicine; FAMILY PHYSICIAN Family Medicine
DX: R79.89 Other specified abnormal findings of blood chemistry (principal); I48.91 Unspecified atrial fibrillation; K21.9 Gastro-esophageal reflux disease without esophagitis; I10 Essential (primary) hypertension; E78.00 Pure hypercholesterolemia, unspecified; E11.9 Type 2 diabetes mellitus without complications; M19.90 Unspecified osteoarthritis, unspecified site; Z87.442 Personal history of urinary calculi; Z96.659 Presence of unspecified artificial knee joint
CPT/HCPCS: 99284; 71275; 93005; Q9967

== ENCOUNTER → 2023-12-09 10:23 | Outpatient (REF) | payer MEDICARE, BC, SELFPAY | LOC: PAVMRI 10:23 | PROVIDERS: ATTENDING PHYSICIAN Internal Medicine Hematology & Oncology; FAMILY PHYSICIAN Family Medicine | DX: D72.820 Lymphocytosis (symptomatic) (principal); C91.10 Chronic lymphocytic leukemia of B-cell type not having achieved remission | CPT/HCPCS: 70553; A9575 ==

== ENCOUNTER → 2023-12-13 08:54 | Outpatient (REF) | payer MEDICARE, BC, SELFPAY ==
[2023-12-13] VITALS (12 sets, daily range): BP systolic 90–126; BP diastolic 63–76
== END ==
LOC: RADI 08:54
PROVIDERS: ATTENDING PHYSICIAN Internal Medicine Hematology & Oncology; FAMILY PHYSICIAN Family Medicine
DX: C78.7 Secondary malignant neoplasm of liver and intrahepatic bile duct (principal); C91.10 Chronic lymphocytic leukemia of B-cell type not having achieved remission; Z85.820 Personal history of malignant melanoma of skin
CPT/HCPCS: 88307; 47000; 76942; 88333; 88341; 88342; 99152; 99153

== ENCOUNTER → 2023-12-19 10:54 | Outpatient (REF) | payer MEDICARE, BC, SELFPAY ==
[2023-12-19 12:33] LABS: Hematocrit 33.3 % (39.0-52.0); Hemoglobin 11.2 g/dL (13.0-18.0); Mean Corp Hgb Conc. 33.6 g/dL (33.0-37.0); Mean Corpuscular Hgb 28.7 pg (27.0-31.0); Mean Corpuscular Volume 85.4 fL (80.0-94.0); Mean Platelet Volume 9.8 fL (7.4-10.4); Platelet Count 488 10^3/uL (130-400); Red Cell Dist. Width 13.7 % (11.5-14.5); White Blood Cell Count 25.3 10^3/uL (4.8-10.8)
[2023-12-19 12:49] LABS: % Basophils 0.2 % (0-2); % Immature Granulocytes 1.1 % (0-0.5); % Lymphocytes 31.6 % (20.5-51.1); % Neutrophils 62.1 % (42.2-75.2); Absolute Basophils 0.1 10^3/uL (0-0.2); Absolute Immature Granulocytes 0.3 10^3/uL (0-0.05); Absolute Monocytes 1.3 10^3/uL (0.1-0.6); Absolute Neutrophils 15.7 10^3/uL (1.4-6.5); Nucleated Red Blood Cells % 0 % (-)
[2023-12-19 12:53] LABS: ALT (SGPT) 38 U/L (0-50); AST (SGOT) 159 U/L (17-59); Albumin 3.3 g/dl (3.5-5.0); Alkaline Phosphatase 326 U/L (38-126); Blood Urea Nitrogen 31 mg/dl (9-20); Calcium 8.6 mg/dl (8.4-10.2); Carbon Dioxide 25 mmol/L (22-30); Chloride 92 mmol/L (98-107); Glucose 130 mg/dl (70-99); Sodium 130 mmol/L (135-145); Total Bilirubin 1.8 mg/dl (0.2-1.3); Total Protein 6.2 g/dl (6.3-8.2); eGFR > 60.00
[2023-12-19 13:22] LABS: TSH Reflex To Free T4 2.76 uIU/ml (0.47-4.68)
== END ==
LOC: REG 10:54
PROVIDERS: ATTENDING PHYSICIAN Internal Medicine Hematology & Oncology; FAMILY PHYSICIAN Family Medicine
DX: D72.820 Lymphocytosis (symptomatic) (principal); C91.10 Chronic lymphocytic leukemia of B-cell type not having achieved remission; C43.59 Malignant melanoma of other part of trunk; F32.9 Major depressive disorder, single episode, unspecified
CPT/HCPCS: 36415; 80053; 84443; 85025